=== PATIENT | female | born 1925 | race Caucasian/White ===

== ENCOUNTER 2016-05-22 07:53 | Day surgery (SDC) | payer MEDICARE, OTHER ==
[~2016-05-22] VITALS: Ht 154.9 cm; Wt 90.9 kg
[~2016-05-22 07:53] MED LIST: ALDACTONE 25MG25 M1 PO; AMLODIPINE BESYL5 MG PO; ASPIRIN E.C. 8181 MG PO; BACTRIM DS 8001 TAB PO; BENICAR40 MG PO; BETAPACE 80MG80 MG PO; BETAPACE160 MG PO; BUMEX 1MG TA1 MG/TA1 PO; CALTRATE 600 +1 TAB PO; CENTRUM SILVER1 TA1 PO; CHLORTHALIDONE25 MG PO; CLEOCIN HCL300 MG PO; CLONIDINE0.1 MG PO; COMPLETE SENIOR1 TA1 PO; COZAAR100 MG PO; D-1000 185 MG-11 TAB PO; D-31000 IU PO; DETROL LA4 PO; FIBER0.52 GM PO; FUROSEMIDE20 MG PO; HYDROCHLOR50 MG PO; HYGROTON 2525 MG/TAB PO; KLOR-CON 1010 MEQ; KLOR-CON 1010 MEQ PO; LASIX 40MG TABL40 MG PO; LIPITOR20 MG PO; LIQUIFILM TEARS15 ML OU; LOPRESSOR 550 MG/TAB PO; LUTEIN6 MG; METAMUCIL FIBE1 EACH PO; METOPROLOL SUCC25 M1 PO; NEURONTIN300 MG/CAP PO; NEXIUM40 MG PO; NORCO 325 MG-51 TAB PO; NORVASC 10MG10 MG PO; NORVASC2.5 MG PO; OMEGA-3 FISH1000 MG PO; POTASSIUM CHLO10 ME2 PO; PRAVACHOL 20MG20 MG PO; PRILOSEC 20MG20 MG PO; SEA OMEGA 301 SGL PO; SENOKOT TABLET1 EA PO; STOOL SOFTENER100 M1 PO; SYNTHROID0.075 MG/T PO; VICODIN 5/5001 UDTAB PO; VOLTAREN 75 DR75 MG PO; VOLTAREN75 MG PO; ZANTAC150 MG PO
[2016-05-22 08:29] VITALS: BP 151/48; PULSE 54; TEMP 97.6
[2016-05-22] MEDS ORDERED: COUMADIN 5MG5 MG/TAB PO (08:56)
[2016-05-22] MEDS ORDERED: ULTRAM 50MG TAB50 MG PO (09:00)
[2016-05-22 09:01] LABS: INR 2.2 (0.8-3.0); PROTHROMBIN TIME 25.2 SECONDS (9.7-12.8)
[2016-05-22] MEDS ORDERED: LIPITOR20 MG PO (09:01)
[2016-05-22] MEDS ORDERED: CLEOCIN HC150 MG/CAP PO (09:03)
[2016-05-22] MEDS ORDERED: METAMUCIL FIBE1 EACH PO (09:05)
[2016-05-22] MEDS ORDERED: CALCIUM/MAGNESI1 T17 PO (09:07)
[2016-05-22] MEDS ORDERED: STOOL SOFTENER100 M2 PO (09:10)
[2016-05-22] MEDS ORDERED: MIRALAX PA17 GM/Dose PO (09:14)
[2016-05-22 10:05] VITALS: BP 123/71; PULSE 58; TEMP 98.1
[2016-05-22 10:20] VITALS: BP 127/56; PULSE 53
[2016-05-22 10:35] VITALS: BP 145/54; PULSE 54
[2016-05-22 11:02] VITALS: BP 139/75; PULSE 58
== END 2016-05-22 11:20 | disposition home or self-care (01) ==
LOC: SDCO 07:53
PROVIDERS: Internal Medicine Pulmonary Disease
DX: R91.1 Solitary pulmonary nodule (principal); I48.91 Unspecified atrial fibrillation; E11.9 Type 2 diabetes mellitus without complications; I10 Essential (primary) hypertension; K21.9 Gastro-esophageal reflux disease without esophagitis; Z96.653 Presence of artificial knee joint, bilateral; Z79.01 Long term (current) use of anticoagulants; M19.90 Unspecified osteoarthritis, unspecified site; Z85.528 Personal history of other malignant neoplasm of kidney; G47.30 Sleep apnea, unspecified; Z85.118 Personal history of other malignant neoplasm of bronchus and lung
CPT/HCPCS: J1956; J2704; J2920; J7030

== ENCOUNTER → 2016-05-28 | Outpatient (CLI) | payer MEDICARE ==
[~2016-05-28] MED LIST changes: +CALCIUM/MAGNESI1 T17 PO; +CLEOCIN HC150 MG/CAP PO; +COUMADIN 5MG5 MG/TAB PO; +MIRALAX PA17 GM/Dose PO; +PERCOCET 325 MG1 TA2 PO; +STOOL SOFTENER100 M2 PO; +ULTRAM 50MG TAB50 MG PO
== END ==
LOC: COL.PUL 08:00
DX: C34.11 Malignant neoplasm of upper lobe, right bronchus or lung (principal)

== ENCOUNTER 2016-06-11 07:05 | Observation (INO) | payer MEDICARE ==
[2016-06-11] VITALS (35 sets, daily range): BP systolic 97–185; BP diastolic 36–94; PULSE 45–73; TEMP 97.6–98.6
[~2016-06-11] VITALS: Ht 154.9 cm; Wt 88.6 kg
[~2016-06-11 07:05] MED LIST changes: -PERCOCET 325 MG1 TA2 PO
[2016-06-11 08:10] LABS: INR 1.1 (0.8-3.0); PROTHROMBIN TIME 12.4 SECONDS (9.7-12.8)
[2016-06-12 04:25] VITALS: BP 131/50; PULSE 51; TEMP 97.9
[2016-06-12 08:28] VITALS: BP 138/43; PULSE 67; TEMP 98.7
== END 2016-06-12 11:28 | disposition home or self-care (01) ==
LOC: COL.RAD 07:05 → MEDICAL 15:43 → COL.RAD 06-17 07:00
PROVIDERS: Radiology Radiation Oncology
DX: C34.2 Malignant neoplasm of middle lobe, bronchus or lung (principal); D3A.8 Other benign neuroendocrine tumors; T81.89XA Other complications of procedures, not elsewhere classified, initial encounter; J98.19 Other pulmonary collapse; R09.02 Hypoxemia; Z79.01 Long term (current) use of anticoagulants
CPT/HCPCS: G0378; G0379

== ENCOUNTER 2016-08-13 07:33 | Day surgery (SDC) | payer MEDICARE ==
[~2016-08-13] VITALS: Ht 157.5 cm; Wt 88.6 kg
[2016-08-13 08:14] VITALS: BP 152/53; PULSE 45; TEMP 97.7
[2016-08-13 08:38] LABS: INR 1.1 (0.8-3.0); PROTHROMBIN TIME 12.7 SECONDS (9.7-12.8)
[2016-08-13] MEDS ORDERED: PERCOCET 325 MG1 TA2 PO (10:34)
[2016-08-13 11:05] VITALS: BP 149/99; PULSE 45; TEMP 97.4
[2016-08-13 11:20] VITALS: BP 150/45; PULSE 46
[2016-08-13 11:35] VITALS: BP 136/51; PULSE 50
[2016-08-13 11:50] VITALS: BP 147/48; PULSE 52
== END 2016-08-13 12:44 | disposition home or self-care (01) ==
LOC: SDCO 07:33
PROVIDERS: Surgery
DX: K42.9 Umbilical hernia without obstruction or gangrene (principal); I48.91 Unspecified atrial fibrillation; C34.11 Malignant neoplasm of upper lobe, right bronchus or lung; Z79.01 Long term (current) use of anticoagulants; Z96.653 Presence of artificial knee joint, bilateral; Z79.82 Long term (current) use of aspirin; Z79.899 Other long term (current) drug therapy
CPT/HCPCS: C1781; J1100; J2405; J2704; J3010; J7120

== ENCOUNTER → 2017-02-18 | Outpatient (CLI) | payer MEDICARE ==
[~2017-02-18] MED LIST changes: +PERCOCET 325 MG1 TA2 PO
== END ==
LOC: COL.RAD 02-17 14:00
DX: M25.511 Pain in right shoulder (principal)
CPT/HCPCS: J3301; Q9967